=== PATIENT | female | born 1940 | race Caucasian/White ===

== ENCOUNTER 2016-12-28 09:12 | Day surgery (SDC) | payer MEDICARE ==
--- NOTE | 2016-12-28 08:05 | HP ---
DATE OF SURGERY: 12/28/2016 HISTORY OF PRESENT ILLNESS: The patient is a 80 year-old with no bloody stools, no change in bowel movements. 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 She had seen Dr. Pang about holding her Xarelto preoperatively. PAST MEDICAL HISTORY: Atrial fibrillation, hypertension. PAST SURGICAL HISTORY: Hysterectomy and cholecystectomy in the past. She had tonsillectomy as well. MEDICATIONS: Amlodipine, hydrochlorothiazide, lisinopril, metoprolol, Pravastatin, Multaq and Xarelto. ALLERGIES: NKDA. FAMILY HISTORY: Negative in regards to this problem. Coronary artery disease, stress and some cancer. SOCIAL HISTORY: No smoking or alcohol abuse. REVIEW OF SYSTEMS: Twelve systems reviewed per admission assessment. No chest pain or palpitations other systems negative or noncontributory as above and per preadmission questionnaire. PHYSICAL EXAMINATION: GENERAL: No acute distress. HEENT: Sclerae nonicteric. NECK: No JVD. CHEST: Equal excursion, nonlabored breathing. CVS: Regular rate and rhythm. ABDOMEN: Soft. No peritoneal signs. EXTREMITIES: No significant edema. NEURO: Alert, moving extremities symmetrically. No gross motor deficits noted. RECTAL: Deferred timed to endoscopy exam. IMPRESSION: History of tubular adenomas, last colonoscopy three years ago in need of follow up screening colonoscopy. I feel she is a candidate. Risks and benefits explained in detail including but not limited to bleeding or infection, small risk of bowel injury or perforation possibly requiring open procedure, small risk of missed or nondiagnosis or incomplete exam possibly requiring barium enema, other studies or procedures, general risk of anesthesia or sedation but not limited to. She understands and agrees to the planned procedure and will proceed with outpatient colonoscopy under MAC anesthesia.
[~2016-12-28 09:12] MED LIST: DIPRIVAN 200 MG/20 ML IV ONE; Versed 2 MG/2 ML Injection IV ONE
[2016-12-28] MEDS ORDERED: Lactated Ringers 1,000 ML IV ONE (09:58)
[2016-12-28] MEDS ORDERED: Lactated Ringers 1,000 ML IV SCH (10:00)
--- NOTE | 2016-12-28 12:38 | OP ---
SURGERY DATE/TIME: 12/28/2016 1101 PREOPERATIVE DIAGNOSIS: History of polyps. Need for screening colonoscopy. POSTOPERATIVE DIAGNOSES: 1) Poor prep limiting the exam. 2) Small polyps ascending, transverse, sigmoid and rectum. Small polyps versus hyperplastic lesions, path pending. 3) Diverticulosis. 4) Small internal and external hemorrhoids. 5) Poor prep limiting exam. 6) Very tortuous left colon. PROCEDURE: Colonoscopy. SURGEON: Dr. Jasbir Westbrook. ANESTHESIA: MAC. ESTIMATED BLOOD LOSS: Minimal. INDICATIONS: As noted above. Risks and benefits explained in detail but not limited to and consent obtained. DESCRIPTION OF PROCEDURE AND FINDINGS: The patient is taken to the endoscopy room. MAC anesthesia introduced. After official time out and no disagreement with planned procedure, digital rectal exam did not reveal any rectal masses. She did have some small internal and external hemorrhoids. Video colonoscope inserted and passed up the very tortuous sigmoid, and descending colon. It took quite some time to navigate through this but finally able to be passed through this up into the more proximal descending colon, transverse colon. With external pressure and positioning the back, the scope was able to be passed around to the cecum area. Prep overall was very poor particularly in the right colon limiting the exam for potential small lesions. These were suction irrigated as well as possible but did limit the exam. The valve and appendiceal orifice area were seen and light in the right lower quadrant. The scope was carefully withdrawn. Small raised lesions versus early polyp in the ascending colon as well as a couple in the transverse colon as well as the sigmoid colon and raised lesion versus early polyp or hyperplastic lesion versus early true polyps removed. Back in the rectum there were some very small polyps having hyperplastic appearing type polyps these were removed with hot biopsy forceps with brief bursts of cautery. Good hemostasis noted. Otherwise she had some internal and external hemorrhoids. She did have moderate diverticulosis mainly in the left colon and a very tortuous left colon. The patient tolerated the procedure well. There were no immediate complications. Findings discussed with the family out in the waiting area. We will see her back in the office next week. If the path is benign likely recommend follow up colonoscopy possibly in three years unless she has symptoms.
[2016-12-28 13:36] VITALS: BP 126/50; PULSE 49; O2SAT 95
== END 2016-12-28 12:50 | disposition home or self-care (01) ==
LOC: SDC 09:12
PROVIDERS: ATTEND Surgery
PROC: 0DBK8ZX Excision of Ascending Colon, Via Natural or Artificial Opening Endoscopic, Diagnostic (ICD-10-PCS; principal; 2016-12-28)
PROC: 0DBP8ZX Excision of Rectum, Via Natural or Artificial Opening Endoscopic, Diagnostic (ICD-10-PCS; 2016-12-28)
PROC: 0DBL8ZX Excision of Transverse Colon, Via Natural or Artificial Opening Endoscopic, Diagnostic (ICD-10-PCS; 2016-12-28)
PROC: 0DBN8ZX Excision of Sigmoid Colon, Via Natural or Artificial Opening Endoscopic, Diagnostic (ICD-10-PCS; 2016-12-28)
DX: D12.2 Benign neoplasm of ascending colon (principal); D12.3 Benign neoplasm of transverse colon; D12.5 Benign neoplasm of sigmoid colon; K62.1 Rectal polyp; Z86.010 Personal history of colon polyps; Z12.11 Encounter for screening for malignant neoplasm of colon; K57.90 Diverticulosis of intestine, part unspecified, without perforation or abscess without bleeding; K64.4 Residual hemorrhoidal skin tags; K64.8 Other hemorrhoids; I10 Essential (primary) hypertension; I48.91 Unspecified atrial fibrillation; Z79.01 Long term (current) use of anticoagulants; Z79.899 Other long term (current) drug therapy
CPT/HCPCS: 00810; 36415; 99100; J2250; J2704

== ENCOUNTER 2021-09-29 10:10 | Day surgery (SDC) | payer MEDICARE ==
--- NOTE | 2021-09-29 08:02 | HP ---
DATE OF SURGERY: 09/29/2021 HISTORY OF PRESENT ILLNESS: The patient is a 80-year-old prior colonoscopy five years ago. She said she had some polyps. She denies any bloody stools. No change in bowel movements. Family history of grandmother from colon cancer. She is in need of follow up screening colonoscopy. PAST MEDICAL HISTORY: Heart disease, hypertension, hyperlipidemia, history of breast cancer, history of atrial fibrillation. PAST SURGICAL HISTORY: Lumpectomy. Cholecystectomy. Hyterectomy. Colonoscopy in the past. MEDICATIONS: Metoprolol, Prolia, Pravastatin, Xarelto, vitamin D3, amlodipine, Multaq, vitamin D2, exemestane, hydrochlorothiazide, lisinopril. ALLERGIES: NKDA. FAMILY HISTORY: Grandmother from colon cancer. SOCIAL HISTORY: Denies smoking. REVIEW OF SYSTEMS: Fourteen systems reviewed. Negative or noncontributory as above and per preadmission questionnaire. PHYSICAL EXAMINATION: GENERAL: No acute distress. HEENT: Sclerae nonicteric. NECK: No JVD. CHEST: Clear to auscultation. CVS: Regular rate and rhythm. ABDOMEN: Soft. No peritoneal signs. EXTREMITIES: No significant edema. NEURO: Alert, oriented, moving extremities symmetrically. RECTAL: Deferred timed to endoscopy exam. PSYCH: Appropriate mood and affect. IMPRESSION: History of polyps, need follow up screening colonoscopy. I feel she is a candidate. Risks and benefits explained in detail including but not limited to bleeding or infection, risk of bowel injury or perforation possibly requiring open procedure, risk of missed or nondiagnosis or incomplete exam possibly requiring barium enema, other studies or procedures, general risk of anesthesia or sedation, risk of bowel prep, postoperative risk of nausea, vomiting or cramping but not limited to, consent obtained. Will proceed with follow up screening colonoscopy with history of polyps in the past.
[2021-09-29] MEDS ORDERED: Lactated Ringers 1,000 ML IV SCH (11:00)
[2021-09-29] MEDS ORDERED: DIPRIVAN 200 MG/20 ML IV ONE ×2 (12:24→12:47)
[2021-09-29] MEDS ORDERED: Versed 2 MG/2 ML Injection ONE (12:24)
[2021-09-29] MEDS ORDERED: Lactated Ringers 1,000 ML IV ONE (13:01)
[2021-09-29 14:01] VITALS: PULSE 60
[2021-09-29 14:53] VITALS: BP 125/60; O2SAT 94
--- NOTE | 2021-09-30 07:59 | OP ---
SURGERY DATE/TIME: 09/29/2021 1224 PREOPERATIVE DIAGNOSIS: History of polyps, need follow up screening colonoscopy. POSTOPERATIVE DIAGNOSES: 1) A few small ascending colon polyps. 2) Small early polyp versus hyperplastic lesion in the rectum. 3) Moderate to severe diverticulosis left colon. 4) Very tortuous colon. PROCEDURES: 1) Colonoscopy to cecum. 2) Hot snare polypectomy ascending colon polyp. 3) Hot biopsy polypectomy second ascending polyp. 4) Hot biopsy polypectomy rectal polyp. SURGEON: Dr. Jasbir Westbrook. ANESTHESIA: MAC. ESTIMATED BLOOD LOSS: Minimal. INDICATIONS: As noted above. Risks and benefits explained in detail but not limited to and consent obtained. DESCRIPTION OF PROCEDURE AND FINDINGS: The patient is taken to the endoscopy room. MAC anesthesia induced. After official time out and no disagreement with planned procedure, digital rectal exam did not reveal any rectal masses. Video colonoscope inserted and passed up through the very tortuous sigmoid, descending colon. Requiring early positioning on the patients back and then was able to navigate down the transverse, ascending colon. With external pressure to the cecum, appendiceal orifice area and valve were photo documented. Prep overall is fair. There is a little liquidy semi-solid stool throughout the colon just slightly limiting for small lesions. A few small polyps in the ascending colon, one was pedunculated and removed with hot snare polypectomy. Another one was a little bit semi-pedunculated that was removed with a combination of snare and hot biopsy polypectomy and brief bursts of cautery. Good hemostasis noted. The scope was then slowly and carefully withdrawn. There is moderate to severe diverticulosis in the left colon. On slow and careful withdrawal of the scope over the next eight minutes, no signs of any other large polyps, masses or obstructing lesions. There was a small 2 mm early polyp looked a little bit adenomatous, path pending, removed with hot biopsy forceps in the rectum. Good hemostasis noted. The scope is withdrawn. The patient tolerated the procedure well. There were no immediate complications.
== END 2021-09-29 14:25 | disposition home or self-care (01) ==
LOC: SDC 10:10
PROVIDERS: ATTEND Surgery
DX: Z09 Encounter for follow-up examination after completed treatment for conditions other than malignant neoplasm (principal); Z80.0 Family history of malignant neoplasm of digestive organs; K57.30 Diverticulosis of large intestine without perforation or abscess without bleeding; D12.2 Benign neoplasm of ascending colon; D12.7 Benign neoplasm of rectosigmoid junction; Z86.010 Personal history of colon polyps
CPT/HCPCS: 88305; 99100; J2250; J2704